=== PATIENT | male | born 1945 | race Caucasian/White ===

== ENCOUNTER 2022-02-08 15:34 | Emergency (ER) | payer MEDICARE, OTHER ==
[~2022-02-08] VITALS: Ht 177.8 cm; Wt 105.9 kg
[2022-02-08 16:15] VITALS: TEMP 99.5
[2022-02-08 18:04] VITALS: BP 134/80; PULSE 82
[2022-02-09] MEDS ORDERED: COZAAR100 MG PO (18:16)
[2022-02-12] MEDS ORDERED: PROBIOTIC BLEN1 EACH PO (14:12)
[2022-02-12] MEDS ORDERED: MACROBID 1100 MG/CAP PO (14:14)
[2022-02-12] MEDS ORDERED: ZITHROMAX500 M2 PO (14:19)
== END 2022-02-08 18:04 | disposition home or self-care (01) ==
LOC: COL.ER 15:34
DX: N17.9 Acute kidney failure, unspecified (principal); N20.0 Calculus of kidney; Z87.891 Personal history of nicotine dependence

== ENCOUNTER 2022-03-08 06:11 | Day surgery (SDC) | payer MEDICARE, OTHER ==
[~2022-03-08] VITALS: Ht 177.8 cm; Wt 104.5 kg
[~2022-03-08 06:11] MED LIST: COZAAR100 MG PO; MACROBID 1100 MG/CAP PO; PROBIOTIC BLEN1 EACH PO; ZITHROMAX500 M2 PO
[2022-03-08] MEDS ORDERED: CEPHALEXIN500 M1 PO (06:58)
[2022-03-08] MEDS ORDERED: CIPRODEX OT (06:59)
[2022-03-08] MEDS ORDERED: NORCO 325 MG-51 TAB PO (06:59)
[2022-03-08 07:06] VITALS: BP 128/77; PULSE 79; TEMP 97.9
[2022-03-08 09:05] VITALS: BP 103/71; PULSE 77; TEMP 98.4
--- NOTE | 2022-03-08 09:05 | NUR ---
Pt returned to [facility] via cart. A&O. VSS-see flowsheet. Denies pain, nausea or other complaints. Tolerating ice chips and given water per request. HOB elevated and side rails up. Call light in reach.
[2022-03-08 09:15] VITALS: BP 109/71; PULSE 76
[2022-03-08 09:30] VITALS: BP 112/69; PULSE 71
[2022-03-08 09:41] VITALS: TEMP 97.4
[2022-03-08 09:45] VITALS: BP 113/72; PULSE 71
--- NOTE | 2022-03-08 10:15 | NUR ---
Pt meets discharge criteria. VS remain stable. Tolerated oral intake. Denies pain, nausea or other complaints. IV removed and pressure dressing applied. Pt dressed independently with spouse in room. Discharge teaching completed, both verbalized understanding. Pt taken via wheelchair to private vehicle for dc home with spouse driving. Pt left with all personal belongings and dc instruction packet.
== END 2022-03-08 10:15 | disposition home or self-care (01) ==
LOC: SDCO 06:11
DX: N20.1 Calculus of ureter (principal); Z87.891 Personal history of nicotine dependence
CPT/HCPCS: C1769; J0690; J2405; J2704; J3010